=== PATIENT | male | born 1965 | race Caucasian/White ===

== ENCOUNTER 2022-11-29 10:37 | Day surgery (SDC) | payer OTHER, SELFPAY ==
[2022-11-15 11:26] VITALS: BMI 26.9
--- NOTE | 2022-11-28 12:21 | WPDANESEPPF ---
Anes - Initial Pre Proc Eval Procedure: Operation Date: 11/29/22 14:30 Proposed Procedures p Screening Colonoscopy - Ernesto Soni MD Date/Time: 11/28/22 12:21 Surgeon: Ernesto Soni MD Pre Op Diagnosis: Neoplasm Screening, Family History Colon Cancer Patient Data Age: 57 Gender: M Height: 1.88 m Weight: 95 kg Allergies Allergy/AdvReac Type Severity Reaction Status Date / Time No Known Allergies Allergy Unknown Unverified 11/29/22 10:52 Home Medications Medication Instructions Recorded Confirmed Type latanoprost 0.005 % eye drops 1 drop ophthalmic (eye) DAILY 09/16/19 11/15/22 History (Xalatan) amlodipine 5 mg tablet 5 mg PO DAILY #90 tabs 08/25/22 11/15/22 Rx atorvastatin 20 mg tablet 20 mg PO DAILY #90 tabs 08/25/22 11/15/22 Rx irbesartan 150 1 tablet PO DAILY #90 tabs 09/04/22 11/29/22 Rx mg-hydrochlorothiazide 12.5 mg tablet aspirin 81 mg tablet 81 mg PO DAILY 11/15/22 11/15/22 History hydrochlorothiazide 12.5 mg tablet 12.5 mg PO DAILY 11/15/22 11/15/22 History losartan 100 mg tablet 100 mg PO DAILY 11/15/22 11/15/22 History Patient hx anesthesia problems: none Family hx anesthesia problems: none Results Review: All pre-operative results and documents have been reviewed as part of the pre-operative evaluation. [facility] Past Medical History Medical History Asymptomatic hypertension Elevated blood sugar Elevated cholesterol with elevated triglycerides FHx: colon cancer Glaucoma Tobacco use disorder Family History Family History Mother Hypertension Sibling Patient's sister is in good health Father Cerebrovascular accident Family history of atrial fibrillation Social History Social History (Updated 08/25/22 @ 07:38 by Gabbie Moreira) Social History: Smoking packs per day: 0.5 Smoking cigarettes per day: 10.0 Years smoked: 35 Smoking pack-years: 17.50 Smoking status: Current every day smoker Tobacco type: cigarettes Second hand tobacco smoke exposure: No Alcohol intake: current Drinks per week: 2 Alcohol use details: Occasionally Substance use: never Substance use type: does not use Living arrangements: with family Gender identity (if verbalized by the patient): Male Sexual Orientation (if Verbalized by the Patient): Straight or Heterosexual Spiritual care concerns: No Anes - Eval Final PreProcedure Day of Procedure 11/28/22 12:21 Patient weight: overweight Heart: regular rate and rhythm Lungs: clear to auscultation Airway: Mallampati scale class II Neurological: alert and oriented Last oral intake: >/= 8 hours ASA classification: III Emergent: no Anesthetic plan: proceed Anesthesia type and monitoring: general GIVS and standard monitoring Results Review: All pre-operative results and documents have been reviewed as part of the pre-operative evaluation. Informed Consent: The patient's anesthetic plan and its attendant risks and benefits were discussed with the patient/family/POA. Questions were solicited and answers provided to the satisfaction of the patient/family/POA.
--- NOTE | 2022-11-28 12:58 | PM.HPGS ---
History of Present Illness History of Present Illness Consent: Risks, benefits, and alternatives have been discussed and questions answered. Patient agrees to proceed with procedure. Chief complaint: Neoplasm Screening, Family History Colon Cancer Narrative: Sourav Owen is a 57 year old male who is referred for colon cancer screening. He has a family history of colon cancer.His sister had colon cancer as did a grandparent Review of Systems Review of Systems: All systems reviewed & are unremarkable except as noted in HPI and below PMFSH Past Medical History Medical History Asymptomatic hypertension Elevated blood sugar Elevated cholesterol with elevated triglycerides FHx: colon cancer Glaucoma Tobacco use disorder Family History Family History Mother Hypertension Sibling Patient's sister is in good health Father Cerebrovascular accident Family history of atrial fibrillation Social History Social History Social History: Smoking packs per day: 0.5 Smoking cigarettes per day: 10.0 Years smoked: 35 Smoking pack-years: 17.50 Smoking status: Current every day smoker Tobacco type: cigarettes Second hand tobacco smoke exposure: No Alcohol intake: current Drinks per week: 2 Alcohol use details: Occasionally Substance use: never Substance use type: does not use Living arrangements: with family Gender identity (if verbalized by the patient): Male Sexual Orientation (if Verbalized by the Patient): Straight or Heterosexual Spiritual care concerns: No Meds Home Medications and Allergies Home Medications Medication Instructions Recorded Confirmed Type latanoprost 0.005 % eye drops 1 drop ophthalmic (eye) DAILY 09/16/19 11/15/22 History (Xalatan) amlodipine 5 mg tablet 5 mg PO DAILY #90 tabs 08/25/22 11/15/22 Rx atorvastatin 20 mg tablet 20 mg PO DAILY #90 tabs 08/25/22 11/15/22 Rx irbesartan 150 1 tablet PO DAILY #90 tabs 09/04/22 11/29/22 Rx mg-hydrochlorothiazide 12.5 mg tablet aspirin 81 mg tablet 81 mg PO DAILY 11/15/22 11/15/22 History hydrochlorothiazide 12.5 mg tablet 12.5 mg PO DAILY 11/15/22 11/15/22 History losartan 100 mg tablet 100 mg PO DAILY 11/15/22 11/15/22 History Allergies Allergy/AdvReac Type Severity Reaction Status Date / Time No Known Allergies Allergy Unknown Unverified 11/29/22 10:52 Exam Const: General: alert Orientation/consciousness: patient oriented x3 Resp: Auscultation: clear to auscultation bilaterally Cardio: Rhythm: regular rhythm GI: GI Palp: Yes Soft to palpation and No Tenderness to palpation present (GI) Neuro: General: patient oriented x3 Assessment and Plan Assessment and plan (1) Colon cancer screening: Code(s): Z12.11 - Encounter for screening for malignant neoplasm of colon Status: Acute Assessment and Plan: Colonoscopy with possible biopsy or polypectomy or cautery or injection of substances.
[2022-11-29 10:50] VITALS: BP 137/77; PULSE 83; RESP 20; TEMP 36.9; O2SAT 100
[2022-11-29] MEDS: LACTATED RINGERS 1,000 ML 150 ML IV CONT (11:06)
[2022-11-29 11:57] VITALS: BP 107/56; PULSE 68; RESP 15; O2SAT 98
[2022-11-29 12:07] VITALS: BP 119/70; PULSE 70; RESP 15; O2SAT 100
[2022-11-29 12:30] VITALS: BP 133/78; PULSE 72; RESP 15; O2SAT 99
--- NOTE | 2022-11-29 13:13 | WPDANESPN ---
Anes - Prog Note Post-Op Date/Time: 11/29/22 13:13 Cardiovascular status: normal Respiratory status: normal Airway patency: baseline Mental status: baseline Post-Op hydration status: normal Vital Signs: Last Vital Signs Temp 36.9 C 11/29/22 10:50 Pulse 72 11/29/22 12:30 Resp 15 11/29/22 12:30 BP 133/78 11/29/22 12:30 Pulse Ox 99 11/29/22 12:30 O2 Del Method Room Air 11/29/22 12:30 Pain Score (VAS): 0 I/O: Intake & Output 11/28/22 11/29/22 11/29/22 23:59 07:59 15:59 Intake Total 200 Balance 200 Post-procedural complaints: none Patient Feedback: Patient satisfied with anesthetic care. Other Findings: Patient vital signs back to baseline. Patient denies nausea and vomiting. Patient's pain under control. Patient OK for discharge.
== END 2022-11-29 12:40 | disposition home or self-care (01) ==
PROVIDERS: PCP Family Medicine; Visit Provider Internal Medicine Gastroenterology
PROC: 0DJD8ZZ Inspection of Lower Intestinal Tract, Via Natural or Artificial Opening Endoscopic (ICD-10-PCS; CPT 45378; principal; 2022-11-29 14:30)
DX: Z12.11 Encounter for screening for malignant neoplasm of colon (principal)
CPT/HCPCS: 45378

== ENCOUNTER → 2023-05-11 13:13 | Outpatient (CLI) | payer OTHER, SELFPAY ==
--- NOTE | ~2023-05-11 | CT_ITS ---
EXAMINATION: CT lung screening DATE: 05/11/2023 13:53 INDICATION: Personal history nicotine dependence, current smoker with 25 pack year history TECHNIQUE: Computed tomography (CT) of the chest was performed without intravenous contrast. The dose -length product (DLP) was 166.74 mGy-cm. Automated exposure control and iterative reconstruction tech [employer] were employed. COMPARISON: None FINDINGS: There is mild emphysema. A calcified nodule of the left lower lobe is consistent with old g ranulomatous disease. No pleural effusion or pneumothorax. No pathologically enlarged thoracic lymph nodes are identified. The heart size is normal. Calcified coronary artery atherosclerosis is noted. T here is moderate thoracic spondylosis. IMPRESSION: 1. Lung-RADS category 1: Negative. Continue annual screening with noncontrast low-dose chest CT in 12 months. Reviewed, dictated and finalized at location [facility]. IMPRESSION: 1. Lung-RADS category 1: Negative. Continue annual screening with noncontrast l ow-dose chest CT in 12 months.
== END ==
PROVIDERS: PCP Family Medicine; Visit Provider Physician Assistant
DX: Z12.2 Encounter for screening for malignant neoplasm of respiratory organs (principal); F17.210 Nicotine dependence, cigarettes, uncomplicated
CPT/HCPCS: 71271

== ENCOUNTER 2023-05-22 08:43 | Outpatient (CLI) | payer OTHER, SELFPAY ==
--- NOTE | ~2023-05-22 | US_ITS ---
Abdominal Sonogram: Real-time sonographic imaging of the abdomen was performed. Clinical History: Abnormal liver labs serum enzymes Findings: The liver appears normal with no evidence of mass lesion or bile duct dilatation. Main por derrick vein demonstrates normal direction of flow. The spleen is normal in size without evidence of foca l lesion. The gallbladder is well distended, and appears normal with no evidence of gallstone or wal l thickening. The common bile duct measures 6 mm. The visualized pancreas, aorta, and IVC are unrema rkable. The right kidney measures 10.2 cm in length and the left kidney measures 11.4 cm. There is no hydronephrosis or renal calculus. Right renal cyst noted with a thin septation. Impression: No significant abnormality seen. Reviewed, dictated and finalized at [facility]. Impression: No significant abnormality seen.
== END 2023-05-22 08:44 | disposition home or self-care (01) ==
PROVIDERS: PCP Family Medicine; Visit Provider Physician Assistant
DX: R74.8 Abnormal levels of other serum enzymes (principal)
CPT/HCPCS: 76700

== ENCOUNTER 2024-05-23 09:04 | Outpatient (CLI) | payer OTHER, SELFPAY ==
--- NOTE | ~2024-05-23 | CT_ITS ---
CT Scan of the Chest without Contrast: Clinical Indication: Lung cancer screening, nicotine dependence COMPARISON: 05/11/2023 Technique: Contiguous sections were acquired throughout the chest without intravenous contrast. Dose reduction technique was used on this scan by utilizing automated exposure control and iterative recon struction technique. The dose-length product (DLP) was 155.25 mGy-cm. Findings: There is no evidence of any significant mediastinal, hilar or axillary lymphadenopathy. The mediastin al soft tissues appear normal. There is no evidence of pleural or pericardial effusion. There is mild emphysema/chronic interstitial change. Calcified left lower lobe granuloma present. Images through the upper abdomen reveal no abnormalities. Impression: Lung RADS 1: Negative. 12 month follow-up screening CT advised. Reviewed, dictated and finalized at location . Impression: Lung RADS 1: Negative. 12 month follow-up screening CT advised.
== END 2024-05-23 09:05 ==
LOC: MICIMG 09:05
PROVIDERS: PCP Family Medicine; Visit Provider Physician Assistant
DX: Z12.2 Encounter for screening for malignant neoplasm of respiratory organs (principal); Z87.891 Personal history of nicotine dependence
CPT/HCPCS: 71271